=== PATIENT | female | born 1945 | race Caucasian/White ===

== ENCOUNTER 2024-03-31 15:20 | Inpatient (IN) ==
[2024-03-31] MEDS: ceFAZolin 2 GM in DEXTROSE 5% IN WATER 50 ML IV SCH (15:22)
[2024-03-31] MEDS ORDERED: ONDANSETRON 4 MG/2 ML VIAL ONE (16:22)
[2024-03-31] MEDS ORDERED: KETAMINE 50 MG/ML Syringe IV ONE (16:22)
[2024-03-31] MEDS ORDERED: PROPOFOL 200 MG/20 ML VIAL IV ONE (16:22)
[2024-03-31] MEDS ORDERED: DEXAMETHASONE 10 MG/ML VIAL ONE (16:22)
[2024-03-31] MEDS ORDERED: LIDOCAINE 2% PF 5 ML VIAL ONE (16:22)
[2024-03-31] MEDS ORDERED: PHENYLephrine 1 MG/10 ML SYRINGE (ANEST) ONE (17:08)
[2024-03-31] MEDS ORDERED: fentaNYL 100 MCG/2 ML VIAL ONE ×3 (17:27→18:14)
[2024-03-31] MEDS ORDERED: IPRATROPIUM/ALBUTEROL 3 ML AMPUL.NEB NEB PRN (17:57)
[2024-03-31] MEDS ORDERED: ONDANSETRON 4 MG/2 ML VIAL IV PRN (17:57)
[2024-03-31] MEDS ORDERED: diphenhydrAMINE 50 MG/ML VIAL IV PRN (17:57)
[2024-03-31] MEDS ORDERED: LACTATED RINGERS 250 ML IV PRN (17:57)
[2024-03-31] MEDS ORDERED: MEPERIDINE 25 MG/ML VIAL IV PRN (17:57)
[2024-03-31] MEDS ORDERED: NALOXONE HCL 0.4 MG/ML VIAL IV PRN (17:57)
[2024-03-31] MEDS: VANCOMYCIN 1 GM VIAL TOPICAL SCH (18:00)
[2024-03-31] MEDS: TOBRAMYCIN SULFATE 1.2 GM VIAL TOPICAL ONE (18:00)
[2024-03-31] MEDS ORDERED: FLEETS ADULT 1 DOSE ENEMA PR PRN (18:10)
[2024-03-31] MEDS ORDERED: BISACODYL 10 MG SUPP.RECT PR PRN (18:10)
[2024-03-31] MEDS ORDERED: morphine 4 MG/ML VIAL IV PRN (18:10)
[2024-03-31] MEDS ORDERED: BENZOCAINE/MENTHOL 1 LOZENGE PO PRN (18:10)
[2024-03-31] MEDS ORDERED: POLYETHYLENE GLYCOL 3350 17 GM PACKET PO PRN (18:10)
[2024-03-31] MEDS ORDERED: MAGNESIUM HYDROXIDE 30 ML ORAL.SUSP PO PRN (18:10)
[2024-03-31] MEDS ORDERED: 0.9 % SODIUM CHLORIDE 10 ML SYRINGE IV PRN (18:23)
[2024-03-31] MEDS ORDERED: GABAPENTIN 300 MG CAPSULE PO SCH (18:30)
[2024-03-31] MEDS ORDERED: LORazepam 0.5 MG TABLET PO PRN (18:30)
[2024-03-31] MEDS: ACETAMINOPHEN 1,000 MG/100 ML BAG IV ONE (18:48)
[2024-03-31] MEDS: METHOCARBAMOL 1,000 MG/10 ML VIAL IV PRN (18:58)
[2024-03-31] MEDS: fentaNYL 100 MCG/2 ML VIAL IV PRN (19:02)
[2024-03-31] MEDS: TRANEXAMIC ACID 1,000 MG/10 ML VIAL IV ONE (19:06)
[2024-03-31] MEDS: TRANEXAMIC ACID 1,000 MG/10 ML VIAL ONE (19:56)
[2024-03-31 20:11] LABS: ALT/SGPT < 5 U/L (<40); AST/SGOT 15 U/L (<32); Albumin 3.6 gm/dL (3.2-5.2); Alkaline Phosphatase 180 U/L (39-117); Bilirubin,Direct 0.3 mg/dL (<0.3); Bilirubin,Total 0.6 mg/dL (0.1-1.0); Blood Urea Nitrogen 16 mg/dL (8-23); Calcium 8.3 mg/dL (8.6-10.4); Carbon Dioxide 20 mmol/L (22-30); Chloride 98 mmol/L (96-108); Globulin 3.5 gm/dL (2.2-3.7); Glomerular Filtration Rate 69; Glucose 105 mg/dL (70-105); Lactate Dehydrogenase 237 U/L (135-225); Phosphorous 3.5 mg/dL (2.5-4.5); Potassium 3.7 mmol/L (3.3-5.1); Sodium 135 mmol/L (133-145); Triglycerides 83 mg/dL (<150); Uric Acid 3.9 mg/dL (2.5-8.0)
[2024-03-31] MEDS: HYDROCODONE/APAP 7.5/325MG TABLET PO PRN (20:30)
[2024-03-31] MEDS: VANCOMYCIN 1,000 MG in 0.9 % SODIUM CHLORIDE 250 ML IV SCH (21:52)
[2024-03-31] MEDS: DOCUSATE SODIUM 100 MG CAPSULE PO SCH (21:54)
[2024-03-31] MEDS: ASPIRIN 81 MG TAB.CHEW PO SCH (21:54)
[2024-03-31] MEDS: POTASSIUM CHLORIDE 10 MEQ TABLET PO SCH (21:54)
[2024-03-31] MEDS: METOPROLOL SUCCINATE 25 MG TAB.XL.24H PO SCH (21:55)
[2024-03-31] MEDS: SENNOSIDES 1 TABLET PO SCH (21:55)
[2024-03-31] MEDS: ATORVASTATIN 10 MG TABLET PO SCH (21:55)
[2024-03-31] MEDS: GABAPENTIN 300 MG CAPSULE PO SCH (21:55)
[2024-03-31] MEDS: 0.9 % SODIUM CHLORIDE 1,000 ML IV SCH (21:56)
[2024-03-31] MEDS: VANCOMYCIN PER PHARMACY IV ONE (21:56)
[2024-03-31] MEDS: 0.9 % SODIUM CHLORIDE 10 ML SYRINGE IV SCH ×2 (21:57)
[2024-03-31] MEDS: LACTATED RINGERS 1,000 ML IV SCH (22:03)
[2024-04-01 05:54] LABS: Basophils # (Auto) 0.01 K/mcL (0.00-0.30); Basophils % (Auto) 0.1 % (0.0-2.0); Eosinophils # (Auto) 0 K/mcL (0.00-0.70); Eosinophils % (Auto) 0 % (0.0-7.0); Hematocrit 34.8 % (34.1-44.9); Hemoglobin 11.1 g/dL (11.2-15.7); Lymphocytes # (Auto) 1.05 K/mcL (1.50-4.80); Lymphocytes % (Auto) 11.1 % (15.5-49.0); Mean Cell Volume 96.1 fL (80.0-100.0); Mean Corpuscular HGB Conc 31.9 g/dL (31.0-36.0); Mean Platelet Volume 9.2 fL (8.8-12.5); Monocytes # (Auto) 0.35 K/mcL (0.10-0.90); Monocytes % (Auto) 3.7 % (1.0-12.0); Neutrophils % (Auto) 84.7 % (38.0-78.0); Platelet Count 492 K/mcL (140-440); RBC 3.62 M/mcL (3.59-5.38); Red Cell Distribution Width 12.9 % (11.5-14.5); WBC 9.4 K/mcL (4.5-11.0)
[2024-04-01 06:14] LABS: C-Reactive Protein 5.48 mg/dL (0.03-0.80)
[2024-04-01 06:15] LABS: ALT/SGPT < 5 U/L (<40); AST/SGOT 17 U/L (<32); Albumin 2.8 gm/dL (3.2-5.2); Albumin/Globulin Ratio 0.9 (1.0-2.3); Alkaline Phosphatase 150 U/L (39-117); Bilirubin,Total 0.4 mg/dL (0.1-1.0); Blood Urea Nitrogen 20 mg/dL (8-23); Calcium 8.2 mg/dL (8.6-10.4); Carbon Dioxide 20 mmol/L (22-30); Chloride 98 mmol/L (96-108); Globulin 3.2 gm/dL (2.2-3.7); Glomerular Filtration Rate 60; Glucose 133 mg/dL (70-105); Potassium 4.1 mmol/L (3.3-5.1); Sodium 133 mmol/L (133-145)
[2024-04-01] MEDS ORDERED: VANCOMYCIN PER PHARMACY IV SCH (06:45)
[2024-04-01] MEDS: OMEPRAZOLE 20 MG CAPSULE PO SCH (07:11)
[2024-04-01] MEDS: LOSARTAN 50 MG TABLET PO SCH (08:49)
[2024-04-01] MEDS: HYDROCHLOROTHIAZIDE 25 MG TABLET PO SCH (08:49)
[2024-04-01] MEDS: GABAPENTIN 300 MG CAPSULE PO SCH (08:49)
[2024-04-01] MEDS: LEVOTHYROXINE 75 MCG TABLET PO SCH (08:50)
[2024-04-01] MEDS ORDERED: LOSARTAN/HCTZ 50/12.5 TABLET PO SCH (09:00)
[2024-04-01] MEDS: MAGNESIUM SULFATE 2 GM/50 ML BAG IV ONE (09:56)
[2024-04-01] MEDS ORDERED: LIDOCAINE 1% 20 ML VIAL SQ ONE (10:05)
[2024-04-01] MEDS ORDERED: SODIUM CHLORIDE IRRIG SOLUTION 500 ML BOTTLE IRR ONE (10:05)
[2024-04-01] MEDS: CEFEPIME 2 GM VIAL IV SCH (17:01)
[2024-04-02 06:47] LABS: Basophils # (Auto) 0.03 K/mcL (0.00-0.30); Basophils % (Auto) 0.3 % (0.0-2.0); Eosinophils # (Auto) 0.12 K/mcL (0.00-0.70); Eosinophils % (Auto) 1.1 % (0.0-7.0); Hematocrit 31.6 % (34.1-44.9); Hemoglobin 9.9 g/dL (11.2-15.7); Lymphocytes # (Auto) 2.22 K/mcL (1.50-4.80); Lymphocytes % (Auto) 19.6 % (15.5-49.0); Mean Cell Volume 97.5 fL (80.0-100.0); Mean Corpuscular HGB Conc 31.3 g/dL (31.0-36.0); Mean Platelet Volume 9.6 fL (8.8-12.5); Monocytes # (Auto) 1.21 K/mcL (0.10-0.90); Monocytes % (Auto) 10.7 % (1.0-12.0); Neutrophils % (Auto) 67.9 % (38.0-78.0); Platelet Count 513 K/mcL (140-440); RBC 3.24 M/mcL (3.59-5.38); WBC 11.3 K/mcL (4.5-11.0)
[2024-04-02 07:26] LABS: Blood Urea Nitrogen 24 mg/dL (8-23); Calcium 9.8 mg/dL (8.6-10.4); Carbon Dioxide 23 mmol/L (22-30); Chloride 100 mmol/L (96-108); Glomerular Filtration Rate 69; Glucose 124 mg/dL (70-105); Potassium 3.6 mmol/L (3.3-5.1); Sodium 136 mmol/L (133-145)
[2024-04-02] MEDS: VANCOMYCIN 1,250 MG in 0.9 % SODIUM CHLORIDE 500 ML IV SCH (21:13)
[2024-04-03 06:48] LABS: Basophils # (Auto) 0.02 K/mcL (0.00-0.30); Basophils % (Auto) 0.2 % (0.0-2.0); Eosinophils # (Auto) 0.28 K/mcL (0.00-0.70); Eosinophils % (Auto) 2.9 % (0.0-7.0); Hematocrit 31.3 % (34.1-44.9); Hemoglobin 10.1 g/dL (11.2-15.7); Lymphocytes # (Auto) 2.42 K/mcL (1.50-4.80); Lymphocytes % (Auto) 25.4 % (15.5-49.0); Mean Cell Volume 95.1 fL (80.0-100.0); Mean Corpuscular HGB Conc 32.3 g/dL (31.0-36.0); Mean Platelet Volume 9.7 fL (8.8-12.5); Monocytes # (Auto) 1.16 K/mcL (0.10-0.90); Monocytes % (Auto) 12.2 % (1.0-12.0); Platelet Count 483 K/mcL (140-440); RBC 3.29 M/mcL (3.59-5.38); WBC 9.5 K/mcL (4.5-11.0)
[2024-04-03 07:00] LABS: Blood Urea Nitrogen 20 mg/dL (8-23); Calcium 10.3 mg/dL (8.6-10.4); Carbon Dioxide 26 mmol/L (22-30); Chloride 99 mmol/L (96-108); Glomerular Filtration Rate 81; Glucose 106 mg/dL (70-105); Potassium 3.7 mmol/L (3.3-5.1); Sodium 136 mmol/L (133-145)
[2024-04-03] MEDS: MAGNESIUM SULFATE 2 GM/50 ML BAG IV ONE (12:20)
[2024-04-04 06:39] LABS: Basophils # (Auto) 0.04 K/mcL (0.00-0.30); Basophils % (Auto) 0.4 % (0.0-2.0); Eosinophils # (Auto) 0.44 K/mcL (0.00-0.70); Eosinophils % (Auto) 4.1 % (0.0-7.0); Hematocrit 31.6 % (34.1-44.9); Hemoglobin 10.1 g/dL (11.2-15.7); Lymphocytes % (Auto) 31.8 % (15.5-49.0); Mean Cell Volume 95.2 fL (80.0-100.0); Mean Platelet Volume 9.5 fL (8.8-12.5); Monocytes # (Auto) 1.15 K/mcL (0.10-0.90); Monocytes % (Auto) 10.8 % (1.0-12.0); Neutrophils % (Auto) 52.2 % (38.0-78.0); Platelet Count 512 K/mcL (140-440); RBC 3.32 M/mcL (3.59-5.38); Red Cell Distribution Width 12.9 % (11.5-14.5); WBC 10.7 K/mcL (4.5-11.0)
[2024-04-04 06:58] LABS: Blood Urea Nitrogen 20 mg/dL (8-23); Calcium 10.9 mg/dL (8.6-10.4); Carbon Dioxide 28 mmol/L (22-30); Chloride 96 mmol/L (96-108); Glomerular Filtration Rate 86; Glucose 102 mg/dL (70-105); Potassium 3.7 mmol/L (3.3-5.1); Sodium 135 mmol/L (133-145)
[2024-04-04 07:20] LABS: Vancomycin,Random 14.6 ug/mL
[2024-04-04] MEDS: MAGNESIUM SULFATE 2 GM/50 ML BAG IV ONE (08:18)
[2024-04-04] MEDS: VANCOMYCIN 1,000 MG in 0.9 % SODIUM CHLORIDE 250 ML IV ONE (08:58)
[2024-04-04] MEDS: ONDANSETRON 4 MG/2 ML VIAL IV PRN (10:03)
[2024-04-04 12:15] VITALS: TEMP 98.8; O2SAT 95
== END 2024-04-04 14:00 | DRG 486 ==
LOC: SUR 15:20 → MEDSUR 19:49
PROVIDERS: ADMIT Orthopaedic Surgery; ATTEND Orthopaedic Surgery